=== PATIENT | male | born 1975 | race Caucasian/White ===

== ENCOUNTER 2024-07-31 14:50 | Outpatient (AMB) | payer BC, SELFPAY ==
--- NOTE | 2024-07-31 15:03 | MHC.OFFWIV ---
Intake Vital Signs 07/31/24 15:18 BP 114/64 Blood Pressure Location Rt brachial Position Sitting Pulse 86 Pulse Source Pulse Oximeter Temp 97.9 F Temp Source Temporal Artery Scan Pulse Oximetry (%) 98 Oxygen Delivery Method Room Air Intake Visit Reasons: synthetic cloth binding cutter/shingles? on right side Allergies No Known Allergies Allergy (Verified 07/31/24 15:05) Medication List - Last Reconciled 07/31/24 by Gina Wahl, [employer]- lisinopril 10 mg PO DAILY omeprazole 20 mg PO DAILY HPI HPI Comments History of Present Illness Details 49-year-old male here today with complaints of a rash on his abdomen, right lower quadrant that started yesterday morning. Since onset the rash has spread up his torso. It is itchy and zimmer. He also has body aches. He has not done any at home remedies. He denies any fever, chills, travel, exposure to others with known rash. Exam Awake alert NAD Right thoracic dermatone of trunk is a papular rash that extends from his right lower quad to under his right axilla Plan: Treat for shingles take antiviral w food to prevent GI upset PRN hydroxyzine for itch and Gabapentin PRN nerve pain Ok to use topical steroid cream to the rash that you have at home discussed shingles vaccine precautions and edu provided along with RTO instructions Assessment & Plan Assessment & Plan (1) Shingles: Code(s): B02.9 - Zoster without complications Qualifiers: Herpes zoster complications: without complications Qualified Code(s): B02.9 - Zoster without complications Plan: . Medications: New valacyclovir 1,000 mg PO Q8H 7 days 21 tabs 0RF gabapentin 100 mg PO TID 7 days PRN 21 caps 0RF pain hydroxyzine HCl 25 mg PO BID PRN 14 tabs 0RF itching Patient Instructions: Is shingles contagious? Yes and no. It is NOT possible to catch shingles from someone who has the rash. But it is possible to catch the virus and then get sick with chickenpox. Shingles and chickenpox are caused by the same virus. You probably will NOT catch the virus (or get chickenpox) if you: -Had chickenpox or shingles in the past -Had the chickenpox vaccine -Were born before 1981 (most people born before 1979 have had chickenpox even if they dont remember it) If you have never had chickenpox or the chickenpox vaccine, be careful around anyone with shingles. Do not touch their rash. If you do, you could get sick with chickenpox. In rare cases, people can even get chickenpox from just being near someone with shingles. This is most likely in people who cannot fight infections well. Coding Level of Care Code New Pt Level 3 (50444) Diagnoses Herpes zoster without complication B02.9 Herpes zoster complications: without complications
[2024-07-31 15:18] VITALS: BP 114/64; PULSE 86; TEMP 36.6; O2SAT 98
== END 2024-07-31 15:25 | disposition home or self-care (01) ==
PROVIDERS: Visit Provider Nurse Practitioner Family
DX: B02.9 Zoster without complications (principal)

== ENCOUNTER → 2024-07-31 14:50 | Outpatient (BNVA) | payer BC, SELFPAY | DX: B02.9 Zoster without complications (principal) ==